=== PATIENT | male | born 1990 | race Caucasian/White ===

== ENCOUNTER → 2023-04-21 14:29 | Outpatient (CLI) | payer OTHER, SELFPAY ==
--- NOTE | ~2023-04-21 | XR_ITS ---
XR elbow LT 2V DATE: 04/21/2023 15:16 INDICATION: Left elbow pain TECHNIQUE: AP and lateral views COMPARISON: None FINDINGS: No fracture or dislocation, periosteal reaction or bone destruction. No joint effusion. IMPRESSION: No significant abnormality Reviewed, dictated and finalized at location L. IMPRESSION: No significant abnormality
== END ==
PROVIDERS: PCP Nurse Practitioner Family; Visit Provider Nurse Practitioner Family
DX: M25.522 Pain in left elbow (principal)
CPT/HCPCS: 73070